=== PATIENT | female | born 2000 ===

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

== ENCOUNTER 2019-01-11 13:35 | Inpatient (IN) | payer OTHER ==
[2019-01-11] MEDS ORDERED: OXYTOCIN DRIP 30,000 MILLIUNITS/500 ML BAG IV ONE (14:09)
[2019-01-11] MEDS ORDERED: BUTORPHANOL 2 MG/1 ML INJ IV PRN (14:09)
[2019-01-11] MEDS ORDERED: AMPICILLIN/NS 2 GM/100 ML 2 GM/100 ML BAG IV ONE (14:30)
[2019-01-11] MEDS ORDERED: AMPICILLIN 2 GM in SODIUM CHLORIDE 0.9% 50 ML IV ONE (14:30)
[2019-01-11] MEDS ORDERED: OXYTOCIN 20 UNIT/1000ML DRIP 20,000 MILLIUNITS/1,000 ML BAG IV ONE (15:24)
[2019-01-11 15:54] LABS: Hematocrit 35.8 % (30.3-42.9); Hemoglobin 12.3 gm/dl (10.1-14.3); Mean Corpuscular HGB Conc 34 % (30-34); Mean Corpuscular Volume 94 fl (79-97); Platelet Count 193 K/mm3 (140-440); Red Cell Distribution Width 13.8 % (13.2-15.2)
[2019-01-11] MEDS: AMPICILLIN/NS 1 GM/50 ML 1 GM/50 ML BAG IV SCH ×2 (18:00→22:25)
[2019-01-11] MEDS ORDERED: TERBUTALINE 1 MG/1 ML INJ SUB-Q PRN (21:15)
[2019-01-11] MEDS ORDERED: ePHEDrine SULFATE 50 MG/1 ML INJ IV PRN (21:15)
[2019-01-11] MEDS ORDERED: LIDOCAINE (2%) 20 MG/1 ML VIAL 20 ML MDV INFILTRATI ONE (21:15)
[2019-01-11] MEDS ORDERED: ONDANSETRON 4 MG/2 ML INJ IV PRN (21:15)
[2019-01-11] MEDS ORDERED: fentaNYL 100 MCG/2 ML INJ IV PRN (21:15)
[2019-01-11] MEDS ORDERED: MINERAL OIL 30 ML ORAL LIQD PO PRN (21:15)
--- NOTE | 2019-01-11 21:18 | History and Physical Report ---
History of Present Illness Date of examination: 01/11/19 Date of admission: 01/11/19 15:13 Chief complaint: My water broke History of present illness: Pt is a 18 year old with EDc 01/10/19 who presents with SROM and occasional contractions. Pt received care at [facility], however records are not available for review. For treat for GBS unknown. Augment with pitocin. Past History Past Medical History: seizure (not medicated) - Obstetrical History Expected Date of Delivery: 01/10/19 Actual Gestation: 40 Week(s) 2 Day(s) : 1 Medications and Allergies Allergies Allergy/AdvReac Type Severity Reaction Status Date / Time No Known Allergies Allergy Verified 01/11/19 14:13 Home Medications Medication Instructions Recorded Confirmed Last Taken Type levETIRAcetam [Keppra] 500 mg PO BID #60 tablet 10/29/13 01/12/19 Unknown Rx Active Meds: Active Medications Butorphanol Tartrate (Stadol) 2 mg IV Q2H PRN PRN Reason: Labor Pain Oxytocin/Sodium Chloride (Pitocin/Ns 30 Unit/500ml) 30,000 milliunits in 500 mls @ 4 mls/hr IV DIRECT ONE; Protocol Stop: 01/16/19 19:08 Last Titration: 01/11/19 20:25 Dose: 4 milliunits/min, 4 mls/hr Documented by: Ampicillin Sodium (Ampicillin/Ns 1 Gm/50 Ml) 1 gm in 50 mls @ 100 mls/hr IV Q4HR [facility]; Protocol Last Admin: 01/11/19 18:00 Dose: 100 mls/hr Documented by: Review of Systems All systems: negative Genitourinary: leakage of fluid - Vital Signs Vital signs: Vital Signs Temp Pulse Resp BP Pulse Ox 98.4 F 81 16 119/76 97 01/11/19 16:21 01/11/19 16:21 01/11/19 16:21 01/11/19 16:21 01/11/19 16:21 Temp Pulse Resp BP Pulse Ox 98.0 F 91 H 18 113/73 100 01/11/19 20:21 01/11/19 21:14 01/11/19 20:21 01/11/19 20:56 01/11/19 21:14 - Physical Exam Breasts: Cardiovascular: Regular rate, Normal S1, Normal S2 Lungs: Positive: Clear to auscultation, Normal air movement Abdomen: Positive: normal appearance, soft, normal bowel sounds. Negative: distention, tenderness Vulva: both: normal Vagina: Positive: normal moisture. Negative: discharge Cervix: Negative: lesion, discharge Uterus: Positive: normal size, normal contour Adnexa: both: normal Anus/Rectum: Positive: normal perianal skin, heme negative. Negative: rectal mass, hemorrhoids Extremities: Deep Tendon Reflex Grade: Normal +2 - Obstetrical Cervical Dilatation: 2 Cervical Effacement Percentage: 60 station: -4 Uterine Contraction Pattern: Absent Uterine Contraction Intensity: Mild Results Result Diagrams: 01/11/19 22:54 All other labs normal. Assessment and Plan IUP at 40.1 with prom with minimal contractions. Admit for augmentation and antibiotic prophylaxis. Anticipate .
[2019-01-11] MEDS ORDERED: OXYTOCIN 20 UNIT/1000ML DRIP 20 UNITS/1,000 ML BAG IV SCH (22:00)
[2019-01-11 23:28] LABS: Hematocrit 35.3 % (30.3-42.9); Hemoglobin 12.1 gm/dl (10.1-14.3)
[2019-01-12] MEDS: LACTATED RINGERS 1,000 ML IV SCH ×2 (01:47→10:13)
[2019-01-12] MEDS: AMPICILLIN/NS 1 GM/50 ML 1 GM/50 ML BAG IV SCH ×3 (02:30→10:13)
--- NOTE | 2019-01-12 13:26 | Anesthesia Consultation ---
Anesthesia Consult and Med Hx Date of service: 01/12/19 - Airway Anesthetic Teeth Evaluation: Good ROM Head & Neck: Adequate Mental/Hyoid Distance: Adequate Mallampati Class: Class II Intubation Access Assessment: Good - Pulmonary Exam CTA: Yes - Cardiac Exam Cardiac Exam: RRR - Pre-Operative Health Status ASA Pre-Surgery Classification: ASA2, Emergency Proposed Anesthetic Plan: Spinal - Pulmonary Hx Asthma: No COPD: No Hx Pneumonia: No - Cardiovascular System Hx Hypertension: No - Central Nervous System Hx Seizures: Yes (2018) Hx Psychiatric Problems: No - Endocrine Hx Renal Disease: No Hx End Stage Renal Disease: No Hx Hypothyroidism: No Hx Hyperthyroidism: No - Hematic Hx Anemia: No Hx Sickle Cell Disease: No - Other Systems Hx Alcohol Use: Yes
--- NOTE | 2019-01-12 13:26 | Anesthesia Day of Surgery ---
Anesthesia Day of Surgery - Day of Surgery Patient Examined: Yes Patient H&P Reviewed: Yes Patient is NPO: Yes
[2019-01-12] MEDS ORDERED: HYDROmorphone 1 MG/1 ML INJ IV PRN ×2 (13:27)
[2019-01-12] MEDS ORDERED: NALOXONE 0.4 MG/1 ML INJ IV PRN ×2 (13:27→17:39)
[2019-01-12] MEDS ORDERED: PROMETHAZINE 25 MG RECT SUPP PR PRN (13:27)
[2019-01-12] MEDS ORDERED: ONDANSETRON 4 MG/2 ML INJ IV PRN (13:27)
[2019-01-12] MEDS ORDERED: PROMETHAZINE 25 MG TAB PO PRN (13:27)
[2019-01-12] MEDS ORDERED: METOCLOPRAMIDE 10 MG/2 ML INJ IV ONE (13:38)
[2019-01-12] MEDS ORDERED: BICITRA ORAL LIQD 30ML PO ONE (13:38)
[2019-01-12] MEDS ORDERED: FAMOTIDINE 20 MG/2 ML INJ IV ONE (13:38)
--- NOTE | 2019-01-12 13:38 | Event Note ---
Date: 01/12/19 IN to see patient this morning. Cervical exam is unchanged from last night. Pt has now been srom for 24 hours. Infant is now having mild tachycardia. Plan for primary for prolonged rupture of membranes and failure to progress.
[2019-01-12] MEDS ORDERED: LACTATED RINGERS 1,000 ML IV SCH (14:00)
[2019-01-12] MEDS ORDERED: ceFAZolin/Water 2 GM/20 ML 2 GM/20 ML SYRINGE IV NR (14:00)
[2019-01-12] MEDS ORDERED: OXYTOCIN 20 UNIT/1000ML DRIP 20 UNITS/1,000 ML BAG IV SCH ×2 (14:00→17:39)
[2019-01-12] MEDS ORDERED: ONDANSETRON 4 MG/2 ML INJ ONE (14:37)
[2019-01-12] MEDS ORDERED: DEXMEDETOMIDINE 200 MCG/2 ML VIAL IV ONE (14:37)
[2019-01-12] MEDS ORDERED: PHENYLEPHRINE/NS 1,000 MCG/10 ML SYRINGE (OR USE) IV ONE (14:38)
[2019-01-12] MEDS ORDERED: WATER FOR IRRIG STERILE 1,500 ML BOTTLE IR ONE (14:40)
[2019-01-12] MEDS ORDERED: SODIUM CHLORIDE 0.9% IRR 1,500 ML BOTTLE IR ONE (14:40)
[2019-01-12] MEDS ORDERED: KETOROLAC 30 MG/1 ML INJ ONE (15:02)
[2019-01-12] MEDS ORDERED: METHYLERGONOVINE MALEATE 0.2 MG/ML VIAL IM ONE ×3 (15:09→17:39)
--- NOTE | 2019-01-12 15:59 | Procedure Note ---
OB Delivery Note - Delivery Date of Delivery: 01/12/19 Surgeon: CEDRIC MEJÍA Estimated blood loss: other (700) - Section Preop diagnosis: arrest of dilation Postop diagnosis: same section procedure: primary low transverse Disposition: PACU Complications: none Narrative: see op report - A at 1 minute: 8 at 5 minutes: 9 Infant Gender: Male (3231 grams 7 pounds 1 ounce)
--- NOTE | 2019-01-12 16:00 | Post Anesthesia Evaluation ---
- Post Anesthesia Evaluation Patient Participated: Yes Airway Patent: Yes Stable Respiratory Function: Yes Nausea/Vomiting: No Temp > 96.8F: Yes Pain Manageable: Yes Adequeate Hydration: Yes Anesthesia Complications: No Block Receding Appropriately: Yes Patient on Ventilator: No
--- NOTE | 2019-01-12 16:06 | Operative Report ---
Operative Report Operative Report: The operative report for patient Lyubov Hardin Date of service- 01/12/2019 Preoperative diagnosis: Intrauterine at 40-1/7 weeks 2. Spontaneous prolonged rupture of membranes 3. Arrest of dilation Postoperative diagnosis: Same Procedure: Primary low transverse section Surgeon: Dr. Ronit Messina EBL: 700 mL Urine output: 200 cc clear IV fluids: 1000 mL LR Findings: Viable male in the vertex occiput anterior position. Weight 7 lbs. 1 oz. 3231 g Apgars 9 and 9. Otherwise normal pelvic anatomy Specimens: None Complications: None Procedure: The patient was admitted to the OR with IV running and in place. She was properly identified as herself. Spinal anesthesia was placed in the OR without difficulty. She was placed in the dorsal supine position with a leftward tilt. A Calloway catheter was inserted. She was then prepped and draped in the normal sterile fashion. An Allis test was used to confirm adequate anesthesia. Once confirmed, the incision was made with the scalpel and carried to the underlying fascia using the scalpel and the Bovie. The fascia was incised in the midline and incision was extended bilaterally using the curved English scissors. The fascia was then dissected from the underlying rectus muscles in a series of sharp and blunt dissection using the English scissors. Muscles were in the in the midline sharply using Metzenbaum scissors and the peritoneum was entered into bluntly using the surgeon's fingers. A bladder blade was then placed into the incision to protect the bladder. Following this the bladder flap was created. Hysterotomy incision was then made in the scalpel. Upon uterine entry, the amniotic sac was ruptured for clear fluid. The infant was then delivered in the occiput posterior position. His mouth and nose were suctioned on the field. The cord was clamped and cut and he was handed to the waiting NICU personnel. The uterus was then exteriorized and cleared of all clots and debris. The hysterotomy incision was then closed in a running locked fashion using 0 Vicryl. The abdomen was then copiously irrigated with warm normal saline. Following this the uterus was replaced into the abdominal cavity. At this point the muscles were reapproximated in the midline using individual sutures of 0 Vicryl. Following this the fascia was closed in a running fashion using 0 Vicryl. Tissue was then copiously irrigated. . Skin was closed in a running fashion u sing 3-0 Monocryl. The sponge lap needle and instrument counts were correct 2. The patient tolerated the procedure well. She was taken to recovery in stable condition.
[2019-01-12] MEDS ORDERED: HYDROCORTISONE 25 MG RECTAL SUPP PR PRN (17:39)
[2019-01-12] MEDS ORDERED: WITCH HAZEL/ GLYCERIN PAD TP PRN (17:39)
[2019-01-12] MEDS ORDERED: SIMETHICONE 80 MG CHEW TAB PO PRN (17:39)
[2019-01-12] MEDS ORDERED: LANOLIN/ZINC/DIMETHICONE (LANSINOH) 7 GM TP PRN (17:39)
[2019-01-12] MEDS ORDERED: D5W/LACTATED RINGERS 1,000 ML IV SCH (17:39)
[2019-01-12] MEDS: KETOROLAC 30 MG/1 ML INJ IV PRN (18:46)
[2019-01-12] MEDS: MORPHINE 2 MG/1 ML INJ IV PRN (22:21)
[2019-01-13] MEDS: KETOROLAC 30 MG/1 ML INJ IV PRN (00:35)
[2019-01-13 04:00] LABS: Hematocrit 26.8 % (30.3-42.9); Hemoglobin 9.2 gm/dl (10.1-14.3)
[2019-01-13] MEDS: MORPHINE 2 MG/1 ML INJ IV PRN (04:32)
[2019-01-13] MEDS: oxyCODONE /ACETAMINOPHEN 5-325MG TAB PO PRN ×3 (08:40→19:41)
--- NOTE | 2019-01-13 08:40 | Progress Note ---
Assessment and Plan POD1 [facility] routine PP care Subjective - Subjective Date of service: 01/13/19 Principal diagnosis: s/p [facility] Patient reports: appetite normal, voiding normally, pain well controlled, flatus, ambulating normally [place]: doing well Objective - Vital Signs Latest vital signs: Vital Signs Temp Pulse Resp BP BP Pulse Ox 01/13/19 04:00 98.6 F 80 18 111/68 01/13/19 00:00 98.7 F 63 18 114/78 01/12/19 19:30 98.7 F 77 132/80 01/12/19 18:00 98.9 F 87 18 141/80 99 01/12/19 16:55 98.6 F 01/12/19 16:45 61 15 131/81 96 01/12/19 16:30 62 16 123/75 96 01/12/19 16:15 63 18 119/79 97 01/12/19 16:05 66 18 118/75 96 01/12/19 16:00 68 16 110/73 97 01/12/19 15:55 97.7 F 64 15 106/54 98 01/12/19 15:50 97.7 F 64 14 104/60 98 01/12/19 14:07 98.9 F 14 01/12/19 13:56 74 129/83 01/12/19 13:26 78 133/86 01/12/19 13:09 64 97 01/12/19 13:04 74 98 01/12/19 12:59 70 97 01/12/19 12:57 80 121/76 01/12/19 12:54 73 97 01/12/19 12:49 65 96 01/12/19 12:44 61 96 01/12/19 12:39 67 96 01/12/19 12:34 63 96 01/12/19 12:29 67 96 01/12/19 12:27 63 116/70 01/12/19 12:24 68 95 01/12/19 12:19 70 95 01/12/19 12:14 76 96 01/12/19 12:09 66 95 01/12/19 12:04 66 96 01/12/19 12:00 98.2 F 01/12/19 11:59 64 96 01/12/19 11:56 69 116/72 01/12/19 11:54 74 96 01/12/19 11:49 66 96 01/12/19 11:44 66 96 01/12/19 11:39 68 97 01/12/19 11:34 72 97 01/12/19 11:26 68 122/79 01/12/19 11:12 82 100 01/12/19 11:07 76 98 01/12/19 11:02 74 100 01/12/19 10:57 74 122/82 100 01/12/19 10:52 72 100 01/12/19 10:47 75 99 01/12/19 10:42 67 100 01/12/19 10:37 70 100 01/12/19 10:32 72 100 01/12/19 10:27 67 119/78 100 01/12/19 10:22 71 99 01/12/19 10:17 69 99 01/12/19 10:15 98.8 F 14 01/12/19 10:12 71 100 01/12/19 10:07 69 99 01/12/19 10:02 79 99 01/12/19 09:57 73 116/79 98 01/12/19 09:52 75 99 01/12/19 09:47 80 98 01/12/19 09:42 71 98 01/12/19 09:37 72 99 01/12/19 09:32 70 98 01/12/19 09:27 69 98 01/12/19 09:26 71 115/71 01/12/19 09:22 69 99 01/12/19 09:17 70 98 01/12/19 09:12 70 99 01/12/19 09:07 70 99 01/12/19 09:02 77 99 01/12/19 08:57 70 124/85 97 Intake and Output 01/12/19 01/13/19 01/13/19 23:59 07:59 15:59 Intake Total 500 200 Output Total 550 1500 Balance -50 -1300 Intake: IV 200 Oral 200 Intake, Free Water 300 Output: Urine 550 1500 Indwelling Catheter 300 700 Uretheral ([place]) 150 Void 800 Other: Total, Intake Amount 200 Total, Output Amount 300 800 # Voids Void 1 - Exam Breasts: Present: normal Cardiovascular: Present: Regular rate, Normal S1 Lungs: Present: Clear to auscultation, Normal air movement Abdomen: Present: normal appearance, soft, normal bowel sounds. Absent: distention, tenderness, guarding Uterus: Present: normal, firm, fundal height below umbilicus. Absent: bogginess, tenderness Extremities: Present: normal Deep Tendon Reflex Grade: Normal +2 Incision: Present: normal, dry, intact - Labs Labs: Abnormal lab results 01/13/19 Range/Units 03:27 Hgb 9.2 L (10.1-14.3) gm/dl Hct 26.8 L D (30.3-42.9) %
[2019-01-13] MEDS: FERROUS SULFATE 325 MG TAB PO SCH (09:52)
[2019-01-13] MEDS: PRENATAL VIT27-FE FUMARATE-FOLIC ACID VIT TAB PO SCH (09:52)
[2019-01-13] MEDS: IBUPROFEN 800 MG TAB PO PRN ×3 (09:53→23:06)
[2019-01-13] MEDS: MAGNESIUM HYDROXIDE (MOM) ORAL LIQD UDC PO PRN (23:15)
[2019-01-14] MEDS: IBUPROFEN 800 MG TAB PO PRN ×3 (05:08→23:17)
--- NOTE | 2019-01-14 09:41 | Progress Note ---
Assessment and Plan POD2 [facility] routine PP care anticipate discharge tomorrow Subjective - Subjective Date of service: 01/14/19 Principal diagnosis: s/p [facility] Patient reports: appetite normal, voiding normally, flatus, ambulating normally : doing well Objective - Vital Signs Latest vital signs: Vital Signs Temp Pulse Resp BP Pulse Ox 01/14/19 08:10 97.9 F 71 20 110/66 97 01/14/19 00:10 98.3 F 81 18 101/65 98 01/13/19 16:19 98.3 F 85 18 106/66 99 01/13/19 12:34 98.0 F 84 18 114/75 97 Intake and Output 01/13/19 01/14/19 01/14/19 23:59 07:59 15:59 Intake Total 240 Balance 240 Intake: Oral 240 Other: Total, Intake Amount 240 # Voids Indwelling Catheter 3 Void 1 - Exam Breasts: Present: normal Cardiovascular: Present: Regular rate, Normal S1 Lungs: Present: Clear to auscultation, Normal air movement Abdomen: Present: normal appearance, soft, normal bowel sounds. Absent: distention, tenderness, guarding Vulva: both: normal Uterus: Present: normal, firm, fundal height below umbilicus. Absent: bogginess, tenderness Extremities: Present: normal Deep Tendon Reflex Grade: Normal +2 Incision: Present: normal, dry, intact
[2019-01-14] MEDS: PRENATAL VIT27-FE FUMARATE-FOLIC ACID VIT TAB PO SCH (09:48)
[2019-01-14] MEDS: oxyCODONE /ACETAMINOPHEN 5-325MG TAB PO PRN ×3 (09:48→21:40)
[2019-01-14] MEDS: FERROUS SULFATE 325 MG TAB PO SCH (09:48)
[2019-01-14] MEDS: MAGNESIUM HYDROXIDE (MOM) ORAL LIQD UDC PO PRN (23:18)
[2019-01-15] MEDS: IBUPROFEN 800 MG TAB PO PRN (05:22)
--- NOTE | 2019-01-15 08:01 | Progress Note ---
Assessment and Plan POD3 s/p primary Vital signs stable Acute anemia- ferrous sulfate Discharge to home today Subjective - Subjective Date of service: 01/15/19 Principal diagnosis: s/p csec Interval history: Pt is POD3 s/p primary for arrest of dilation and prolonged ROM with tachycardia Patient reports: appetite normal, voiding normally, pain well controlled, flatus, ambulating normally [place]: doing well, bottle feeding Objective - Vital Signs Latest vital signs: Vital Signs Temp Pulse Resp BP Pulse Ox 01/15/19 01:05 98.1 F 84 20 107/69 97 01/14/19 16:16 98.4 F 86 16 112/71 100 01/14/19 08:10 97.9 F 71 20 110/66 97 Intake and Output 01/14/19 01/14/19 01/15/19 15:59 23:59 07:59 Intake Total 600 240 480 Balance 600 240 480 Intake: Oral 600 240 Intake, Free Water 480 Other: Total, Intake Amount 240 240 # Voids Void 1 1 3 - Exam Lungs: Present: Normal air movement Abdomen: Present: soft Uterus: Present: normal, firm, fundal height below umbilicus Extremities: Present: edema (+1) Incision: Present: normal, dry, intact
--- NOTE | 2019-01-15 08:02 | Discharge Summary ---
Providers - Providers Date of Admission: 01/11/19 15:13 Date of discharge: 01/15/19 Attending physician: ANGELA HAGAN MD Primary care physician: ANGELA HAGAN MD Hospitalization Reason for admission: rupture of membranes Delivery: Procedure: primary low transverse Episiotomy: none Laceration: none Incision: normal, dry, intact Other procedures: none complications: none Discharge diagnosis: IUP at term delivered [place] baby: male Hospital course: course uncomplicated Condition at discharge: Good Disposition: DC-01 TO HOME OR SELFCARE Plan - Discharge Medications Prescriptions: Ferrous Sulfate [Ferrous Sulfate 324 MG] 324 mg PO BID #60 tablet. Ibuprofen [Motrin] 600 mg PO Q6H PRN #60 tablet PRN Reason: Pain - Provider Discharge Summary Activity: routine, no sex for 6 weeks, no heavy lifting 4 weeks, no strenuous exercise Diet: routine Instructions: routine Additional instructions: [] Smoking cessation referral if applicable(refer to patient education folder for contact #) [] Refer to [facility] Booklet Call your doctor immediately for: * Fever > 100.5 * Heavy vaginal bleeding ( >1 pad per hour) * Severe persistent headache * Shortness of breath * Reddened, hot, painful area to leg or breast * Drainage or odor from incision. * Keep incision clean and dry at all times and follow doctor's instructions regarding bathing/showering - Follow up plan Follow up: AIYANA ROCHA CNM [Advanced Practice Nurse] - 10 Days (Please call [facility] peel operator to schedule incision check.) Forms: [facility] Discharge Summary
[2019-01-15] MEDS: oxyCODONE /ACETAMINOPHEN 5-325MG TAB PO PRN ×2 (08:53→13:46)
[2019-01-15] MEDS: PRENATAL VIT27-FE FUMARATE-FOLIC ACID VIT TAB PO SCH (10:05)
[2019-01-15] MEDS: FERROUS SULFATE 325 MG TAB PO SCH (10:05)
[2019-01-15] MEDS ORDERED: NEOMY 40 MG/POLYMYXIN B 200,000 UNITS/ML (GU) AMPULE IR ONE (12:00)
[2019-01-15] MEDS ORDERED: NEOMY 3.5 MG/BACIT 400 UNITS/POLY B 5000 UNITS/GM OINT PACKET TP ONE (12:16)
[2019-01-15 16:19] VITALS: BP 129/82
== END 2019-01-15 16:37 | disposition home or self-care (01) | DRG 765 ==
LOC: TRG 13:35 → LD 15:13 → OB 01-12 17:22
PROVIDERS: ADMIT Obstetrics & Gynecology; ATTEND Obstetrics & Gynecology
PROC: 10D00Z1 Extraction of Products of Conception, Low, Open Approach (ICD-10-PCS; principal; 2019-01-12)
DX: O76 Abnormality in fetal heart rate and rhythm complicating labor and delivery (principal); D62 Acute posthemorrhagic anemia; O99.02 Anemia complicating childbirth; Z3A.40 40 weeks gestation of pregnancy; Z37.0 Single live birth
CPT/HCPCS: 36415; 85014; 85018; 85027; 86592; 86850; 86900; 86901; G0378; J0290; J0690; J1885; J2210; J2270; J2370; J2405; J2590; J2765; J3010; J3490; J7120; J7121

== ENCOUNTER 2019-01-21 22:20 | Emergency (ER) | payer OTHER ==
[2019-01-21 22:32] VITALS: BP 121/74
--- NOTE | 2019-01-22 01:16 | Emergency Department Report ---
ED General Adult HPI - General Chief complaint: Wound/Laceration Stated complaint: C SECTION 01/12/19 BLEEDING Time Seen by Provider: 01/22/19 00:36 Source: patient Mode of arrival: Ambulatory Limitations: No Limitations - History of Present Illness Initial comments: 18-year-old female presents with complaints of bleeding from her C- section incisional site 2 days. She denies any pain. She states the bleeding seems to be increasing today. She states she had her performed on January [address] Lyubov valadez at [facility]. She denies any blood thinners or known bleeding disorders. -: Sudden Severity scale (0 -10): 0 Associated Symptoms: denies other symptoms - Related Data Previous Rx's Medication Instructions Recorded Last Taken Type levETIRAcetam [Keppra] 500 mg PO BID #60 tablet 10/29/13 Unknown Rx Ferrous Sulfate [Ferrous Sulfate 324 mg PO BID #60 tablet. 01/15/19 Unknown Rx 324 MG] Ibuprofen [Motrin] 600 mg PO Q6H PRN #60 tablet 01/15/19 Unknown Rx oxyCODONE /ACETAMINOPHEN [Percocet 1 tab PO Q6HR PRN #30 tablet 01/15/19 Unknown Rx 5/325] Allergies Allergy/AdvReac Type Severity Reaction Status Date / Time No Known Allergies Allergy Verified 01/11/19 14:13 ED Review of Systems ROS: Stated complaint: C SECTION 01/12/19 BLEEDING Other details as noted in HPI Comment: All other systems reviewed and negative Hematological/Lymphatic: denies: easy bleeding, easy bruising ED Past Medical Hx - Past Medical History Previous Medical History?: Yes Hx Hypertension: No Hx Congestive Heart Failure: No Hx Diabetes: No Hx Deep Vein Thrombosis: No Hx Renal Disease: No Hx Sickle Cell Disease: No Hx Seizures: Yes (2018) Hx Asthma: Yes Hx COPD: No Hx HIV: No - Surgical History Past Surgical History?: No - Social History Smoking Status: Never Smoker Substance Use Type: None - Medications Home Medications: Home Medications Medication Instructions Recorded Confirmed Last Taken Type levETIRAcetam [Keppra] 500 mg PO BID #60 tablet 10/29/13 01/12/19 Unknown Rx Ferrous Sulfate [Ferrous Sulfate 324 mg PO BID #60 tablet. 01/15/19 Unknown Rx 324 MG] Ibuprofen [Motrin] 600 mg PO Q6H PRN #60 tablet 01/15/19 Unknown Rx oxyCODONE /ACETAMINOPHEN [Percocet 1 tab PO Q6HR PRN #30 tablet 01/15/19 Unknown Rx 5/325] ED Physical Exam - General Limitations: No Limitations General appearance: alert, in no apparent distress - Head Head exam: Present: atraumatic, normocephalic - Eye Eye exam: Present: normal appearance - Neck Neck exam: Present: full ROM - Respiratory Respiratory exam: Present: normal lung sounds bilaterally. Absent: respiratory distress - Cardiovascular Cardiovascular Exam: Present: regular rate, normal rhythm - GI/Abdominal GI/Abdominal exam: Present: soft, normal bowel sounds, other ( incisi onal site noted with overlying Steri-Strips and minimal active bleeding. No tenderness to palpation or surrounding erythema noted). Absent: distended, tenderness, guarding, rebound, rigid - Extremities Exam Extremities exam: Present: normal inspection - Neurological Exam Neurological exam: Present: alert, oriented X3 - Psychiatric Psychiatric exam: Present: normal affect, normal mood - Skin Skin exam: Present: warm, dry, normal color. Absent: rash, diaphoretic, erythema, ecchymosis ED Course Vital Signs 01/21/19 22:28 Temperature 98.5 F Pulse Rate 105 H Respiratory 18 Rate Blood Pressure 121/74 O2 Sat by Pulse 96 Oximetry ED Medical Decision Making - Lab Data Result diagrams: 01/22/19 01:11 Lab Results 01/22/19 01/22/19 Range/Units 01:11 01:11 WBC 11.0 (4.5-11.0) K/mm3 RBC 3.28 L (3.65-5.03) M/mm3 Hgb 10.3 (10.1-14.3) gm/dl Hct 30.5 (30.3-42.9) % MCV 93 (79-97) fl MCH 32 (28-32) pg MCHC 34 (30-34) % RDW 13.4 (13.2-15.2) % Plt Count 442 H (140-440) K/mm3 Lymph % (Auto) 19.5 (13.4-35.0) % [place] % (Auto) 5.6 (0.0-7.3) % Eos % (Auto) 1.5 (0.0-4.3) % Baso % (Auto) 0.5 (0.0-1.8) % Lymph # 2.2 (1.2-5.4) K/mm3 [place] # 0.6 (0.0-0.8) K/mm3 Eos # 0.2 (0.0-0.4) K/mm3 Baso # 0.1 (0.0-0.1) K/mm3 Seg Neutrophils % 72.9 H (40.0-70.0) % Seg Neutrophils # 8.0 H (1.8-7.7) K/mm3 PT 14.3 (12.2-14.9) Sec. INR 1.12 (0.87-1.13) APTT 36.4 (24.2-36.6) Sec. - Medical Decision Making 18 yo female pt complains of bleeding at her incisional site for the past 2 days. Mild bleeding noted on exam. Patient denies any pain. No erythema or swelling noted on exam. Patient also seen by Dr. Valente. CBC, PT, and PTT are WNL. Discussed patient with her CLOUD DEVELOPER, Dr. Ritu Abdalla patient okay to follow up in office tomorrow for wound evaluation. Wound care and strict return precautions were discussed in detail with patient who states understanding. Critical care attestation.: If time is entered above; I have spent that time in minutes in the direct care of this critically ill patient, excluding procedure time. ED Disposition Clinical Impression: Postoperative bleeding from incision Disposition: DC-01 TO HOME OR SELFCARE Is pt being admited?: No Condition: Stable Additional Instructions: Please follow up with your OBGYN tomorrow for further evaluation
[2019-01-22 01:29] LABS: Basophils # (Auto) 0.1 K/mm3 (0.0-0.1); Basophils % (Auto) 0.5 % (0.0-1.8); Eosinophils # (Auto) 0.2 K/mm3 (0.0-0.4); Eosinophils % (Auto) 1.5 % (0.0-4.3); Hematocrit 30.5 % (30.3-42.9); Hemoglobin 10.3 gm/dl (10.1-14.3); Lymphocytes # (Auto) 2.2 K/mm3 (1.2-5.4); Lymphocytes % (Auto) 19.5 % (13.4-35.0); Mean Corpuscular HGB Conc 34 % (30-34); Mean Corpuscular Volume 93 fl (79-97); Monocytes # (Auto) 0.6 K/mm3 (0.0-0.8); Monocytes % (Auto) 5.6 % (0.0-7.3); Platelet Count 442 K/mm3 (140-440); Red Blood Count 3.28 M/mm3 (3.65-5.03); Red Cell Distribution Width 13.4 % (13.2-15.2)
[2019-01-22 01:39] LABS: INR 1.12 (0.87-1.13); Partial Thromboplastin Time 36.4 Sec. (24.2-36.6)
== END 2019-01-22 02:57 | disposition home or self-care (01) ==
LOC: ED 22:20
DX: O90.2 Hematoma of obstetric wound (principal); Z79.899 Other long term (current) drug therapy
CPT/HCPCS: 36415; 85025; 85610; 85730